=== PATIENT | male | born 1980 | race Caucasian/White ===

== ENCOUNTER 2017-04-23 22:11 | Emergency (ER) | payer BC ==
[2017-04-23 22:17] VITALS: TEMP 98.4
--- NOTE | 2017-04-23 22:32 | CPEKG ---
Heart Rate: 170 RR Interval: 353 QRSD Interval: 98 QT Interval: 288 QTC Interval: 485 QRS [place]: -55 T Wave [place]: 52 EKG Severity - ABNORMAL ECG - EKG Impression: ATRIAL FIBRILLATION, V-RATE 117-197 EKG Impression: LAD, CONSIDER LEFT ANTERIOR FASCICULAR BLOCK EKG Impression: BORDERLINE PROLONGED QT INTERVAL Electronically Signed By: Nic Huerta 24-Apr-2017 00:53:14
[2017-04-23] MEDS ORDERED: ENOXAPARIN 80 MG/0.8 ML SYR SC ONE (22:45)
[2017-04-23 22:49] LABS: PLATELET COUNT 209 10^3/uL (150-400)
--- NOTE | 2017-04-23 22:53 | EDPHY ---
H & P Stated Complaint: Hx SVT, irregular Heartbeat Time Seen by Provider: 04/23/17 22:20 HPI/ROS: Chief Complaint: Irregular heartbeat HPI: 36-year-old male with a history of SVT noted is at 4:45 a.m. This afternoon his heartbeat became very fast and irregular. Prior to that he felt completely normal. He has been feeling persistently mildly short of breath with persistent palpitations. This does not feel like his SVT. He did attempt vagal maneuvers at home without any success. No chest pain or shortness of breath. No leg pain or swelling. No recent travel. No fevers or chills. No cough. He has been cutting back on his caffeine intake for the last week. ROS: 10 point Review of Systems is negative except as noted in the HPI. PMH: SVT Social History: No smoking, occasional alcohol, no recreational drug use Family History: non-contributory Physical Exam: Gen: Awake, Alert, No Distress HEENT: Nose: no rhinorrhea Eyes: PERRLA, EOMI Mouth: Moist mucosa Neck: Supple, no JVD Chest: nontender, lungs clear to auscultation Heart: Tachycardic, irregularly irregular Abd: Soft, non-tender, no guarding Back: no CVA tenderness, no midline tenderness Ext: no edema, non-tender Skin: no rash Neuro: CN II-XII intact, Sensation grossly intact, Strength 5/5 in bilateral upper and lower extremities - Personal History Current Tetanus Diphtheria and Acellular Pertussis (TDAP): Yes - Medical/Surgical History Hx Asthma: No Hx Chronic Respiratory Disease: No Hx Diabetes: No Hx Cardiac Disease: Yes Hx Renal Disease: No Hx Cirrhosis: No Hx Alcoholism: No Hx HIV/AIDS: No Hx Splenectomy or Spleen Trauma: No Other PMH: Hx SVT - Social History Smoking Status: Never smoked Constitutional: Initial Vital Signs Temperature (C) 36.9 C 04/23/17 22:13 Heart Rate 121 H 04/23/17 22:13 Respiratory Rate 20 04/23/17 22:13 Blood Pressure 89/72 L 04/23/17 22:13 O2 Sat (%) 96 04/23/17 22:13 O2 Delivery Mode [Procedural Nasal Cannula 2nd] O2 Delivery Mode [Procedural Room Air 1st] O2 Delivery Mode [.Immediate Nasal Cannula Pre-Procedure] O2 Delivery Mode Room Air O2 (L/minute) [Procedural 2nd] 2 O2 (L/minute) [Procedural 1st] 2 O2 (L/minute) [.Immediate Pre- 2 Procedure] Allergies/Adverse Reactions: No Known Allergies Allergy (Unverified 04/23/17 22:12) Medical Decision Making - Diagnostics EKG Interpretation: ECG 1. Time 10:30 p.m., atrial fibrillation with a ventricular rate of 170 ECG 2. Time 12:05 a.m. sinus rhythm with a rate of 90, normal axis, there is an incomplete right bundle and left anterior fascicular block. Procedures: Procedure: Procedural sedation. A pre-sedation evaluation was completed on the patient at 2330. Patient is an appropriate candidate for procedural sedation. The risks of the sedation were discussed with the patient. A time out was completed. The patient was sedated with propofol, 80 mg. The patient was monitored with continuous pulse oximetry and classroom monitor. There were no complications and no significant hypoxemia. I remained at the bedside for the sedation. The total time I spent in the procedural sedation was 20 min. Procedure: Electrical cardioversion. The patient was electrically cardioverted for atrial fibrillation. The patient was on a continuous cardiac rehabilitation specialist, with airway equipment at the bedside. The patient was on continuous pulse oximetry. The cardioversion was attempted with 100 joules biphasic current. The cardioversion was successful. The patient tolerated the procedure well with no complications. The procedure was performed by myself. ED Course/Re-evaluation: 36-year-old male who can definitively tell me that he went into a rapid heart beat at 4:45 a.m. This afternoon. He is in atrial fibrillation here. Does not have any other risk factors. He is confident that this did start at 4:45 p.m. We discussed treatment options. Given the fact that he has been in this for less than 6 hr the likelihood of him developing a mural thrombus is extremely low. He would prefer the option of synchronized cardioversion. Plan will be to give him a subcu Lovenox now. Will check his electrolytes and plan for synchronized cardioversion in 1 hr. 0015 patient was successfully cardioverted back to a sinus rhythm. He tolerated the procedure well. He is currently without complaint. Currently in a sinus rhythm with a rate of 90. 0030 patient return to his baseline. He is completely neurologically intact. He remains in sinus rhythm without complaint. I have referred him to Cardiology for follow-up and given precautions for returning. - Data Points Laboratory Results: Laboratory Results 04/23/17 22:39 04/23/17 22:39 04/23/17 04/23/17 22:39 22:39 WBC 8.12 10^3/uL 10^3/uL (3.80-9.50) RBC 4.93 10^6/uL 10^6/uL (4.40-6.38) Hgb 14.5 g/dL g/dL (13.7-17.5) Hct 42.2 % % (40.0-51.0) MCV 85.6 fL fL (81.5-99.8) MCH 29.4 pg pg (27.9-34.1) MCHC 34.4 g/dL g/dL (32.4-36.7) RDW 12.8 % % (11.5-15.2) Plt Count 209 10^3/uL 10^3/uL (150-400) MPV 9.0 fL fL (8.7-11.7) Neut % (Auto) 55.8 % % (39.3-74.2) Lymph % (Auto) 32.6 % % (15.0-45.0) Schley % (Auto) 8.6 % % (4.5-13.0) Eos % (Auto) 2.3 % % (0.6-7.6) Baso % (Auto) 0.5 % % (0.3-1.7) Nucleat RBC Rel Count 0.0 % % (0.0-0.2) Absolute Neuts (auto) 4.52 10^3/uL 10^3/uL (1.70-6.50) Absolute Lymphs (auto) 2.65 10^3/uL 10^3/uL (1.00-3.00) Absolute Monos (auto) 0.70 10^3/uL 10^3/uL (0.30-0.80) Absolute Eos (auto) 0.19 10^3/uL 10^3/uL (0.03-0.40) Absolute Basos (auto) 0.04 10^3/uL 10^3/uL (0.02-0.10) Absolute Nucleated RBC 0.00 10^3/uL 10^3/uL (0-0.01) Immature Gran % 0.2 % % (0.0-1.1) Immature Gran # 0.02 10^3/uL 10^3/uL (0.00-0.10) Sodium 144 mEq/L mEq/L (135-145) Potassium 4.1 mEq/L mEq/L (3.5-5.2) Chloride 106 mEq/L mEq/L (97-110) Carbon Dioxide 25 mEq/l mEq/l (22-31) Anion Gap 13 mEq/L mEq/L (8-16) BUN 18 mg/dL mg/dL (7-23) Creatinine 1.3 mg/dL mg/dL (0.7-1.3) Estimated GFR > 60 Glucose 91 mg/dL mg/dL (70-100) Calcium 9.1 mg/dL mg/dL (8.5-10.4) Medications Given: Discontinued Medications Enoxaparin Sodium (Lovenox) 80 mg SC EDNOW ONE Stop: 04/23/17 22:46 Last Admin: 04/23/17 23:04 Dose: 80 mg Sodium Chloride (Ns) 1,000 mls @ 0 mls/hr IV ONCE ONE PRN Reason: Wide Open Stop: 04/24/17 00:10 Last Admin: 04/24/17 00:11 Dose: 1,000 mls Propofol (Diprivan) 80 mg IVP EDNOW ONE Stop: 04/24/17 00:10 Last Admin: 04/24/17 00:00 Dose: 80 mg Departure - Departure Disposition: Home, Routine, Self-Care Clinical Impression: Atrial fibrillation Condition: Good Instructions: A-fib (Atrial Fibrillation) (ED), Moderate Sedation (ED), Cardioversion (DC) Additional Instructions: Follow up with home mission worker in 3-4 days for further evaluation. Return to the emergency department for chest pain, shortness of breath, rapid heart rate, fainting, or any other concerns. Referrals: Carlos Phillips MD [Primary Care Provider] - As per Instructions Meche Weiss MD [Medical Doctor] - As per Instructions
[2017-04-23 23:25] VITALS: RESP 16
[2017-04-23] MEDS ORDERED: PROPOFOL 200 MG/20 ML VIAL ONE (23:50)
[2017-04-24] MEDS ORDERED: PROPOFOL 200 MG/20 ML VIAL IVP ONE (00:09)
[2017-04-24] MEDS ORDERED: NS 1,000 ML IV ONE (00:09)
--- NOTE | 2017-04-24 00:10 | CPEKG ---
Heart Rate: 90 RR Interval: 667 P-R Interval: 156 QRSD Interval: 106 QT Interval: 348 QTC Interval: 426 P [place]: 62 QRS [place]: -43 T Wave [place]: 56 EKG Severity - ABNORMAL ECG - EKG Impression: SINUS RHYTHM EKG Impression: INCOMPLETE RBBB AND LAFB Electronically Signed By: Nic Huerta 24-Apr-2017 00:53:14
[2017-04-24 00:13] VITALS: BP 98/77; PULSE 95; O2SAT 97
== END 2017-04-24 00:45 | disposition home or self-care (01) ==
PROC: 5A2204Z Restoration of Cardiac Rhythm, Single (ICD-10-PCS; principal; 2017-04-23)
DX: I48.91 Unspecified atrial fibrillation (principal)
CPT/HCPCS: J1650; J2704